=== PATIENT | male | born 1945 | race Caucasian/White ===

== ENCOUNTER → 2017-02-24 | Outpatient (CLI) | payer MEDICARE, BC ==
[~2017-02-24] MED LIST: ALEVE 220MG220 MG PO; ALOXI; AMOXICILLIN 50500 MG PO; ANTIVIRAL MED; ASPIRIN 32325 MG/TAB PO; ASPIRIN 81M81 MG/TA2 PO; ATARAX 25MG25 MG/TAB PO; BACTRIM 400 MG-1 TAB PO; BROVANA15 MCG/2 M IH; CARBOPLATIN IV; CARDIZEM CD 18180 MG PO; CENTRUM MEN'S PO; CENTRUM SILVER1 TA1 PO; CENTRUM SILVER1 TA2 PO; CHEMO DRUG; CIPRO 100MG TA100 MG PO; CIPRO 500MG TA500 MG PO; COMPAZINE 110 MG/TAB PO; COMPLETE SENIOR1 TA1 PO; COREG 3.123.125 MG/T PO; DALIRESP500 MCG PO; DECADRON 4MG TAB4 MG; DOXYCYCLINE 10100 MG PO; EFFIENT10 MG PO; EMEND40 MG; EPA FISH OIL1 SGL; FLOMAX0.4 MG PO; FLONASE NASAL S16 GM NS; FOLIC ACID; FOLIC ACID 11 MG/TA1 PO; GEMCITABINE IV; GRX VITAMIN E1000 IU TP; HCTZ 25MG TAB25 MG PO; K-DUR 2020 MEQ PO; LASIX 40MG TABL40 MG PO; LEXAPRO 10MG10 MG PO; LIPOTRIAD VISI1 EAC1 PO; LOTENSIN 1010 MG/TAB PO; LOTENSIN HCT 101 TAB PO; MAG-OX 400400 MG/TAB PO; MAGIC MOUTH PO; MINIPRIN81 MG PO; MUCINEX1200 MG PO; NATURAL E400 IU PO; NORCO 325 MG-51 TAB PO; OMEGA 31000 MG PO; OMEGA-3 FISH1000 MG PO; PERCOCET 325 MG1 TA2 PO; PREDNISONE10 MG PO; REQUIP 1MG T1 MG/TAB PO; REQUIP0.25 MG PO; RT SPIRIVA18 MCG IH; SPIRIVA HANDIH18 MCG IH; STIOLTO RESPIMAT4 GM IH; THEO-24 20200 MG/CAP PO; VASOTEC 2.2.5 MG/TAB PO; VASOTEC 5MG5 MG/TAB PO; VENTOLIN0.09 MG IH; VIT B-6100 MG PO; VITAMIN B-6100 MG PO; VITAMIN E1000 U/CAP PO; ZANTAC 150MG T150 MG PO; ZOVIRAX400 MG PO; ZYRTEC 10MG10 MG PO; ZYRTEC ALLERGY10 MG PO; ZYRTEC-D 5 MG-11 TER PO; ZYRTEC5 M1 PO; ZYRTEC5 MG PO; [UNRECOGNIZED DRUG - OTHER]; [UNRECOGNIZED DRUG - OTHER]; [UNRECOGNIZED DRUG - OTHER] PO
[2017-02-27 15:22] LABS: ALBUMIN FRACTION 3.8 g/dL (2.6-4.5); ALBUMIN PERCENTAGE 55.3 % (48.7-61.8); ALPHA 1 FRACTION 0.5 g/dL (0.3-0.5); ALPHA 2 FRACTION 0.9 g/dL (0.6-1.2); BETA 1 FRACTION 0.5 g/dL (0.4-0.6); BETA 1 PERCENTAGE 6.5 % (5.4-8.9); BETA 2 FRACTION 0.5 g/dL (0.2-0.5); GAMMA FRACTION 0.8 g/dL (0.4-1.7); GAMMA PERCENTAGE 11.2 % (8.1-23.0); SERUM PROTEIN TOTAL 6.9 g/dL (6.0-7.6)
== END ==
LOC: COL.LAB 11:25
PROVIDERS: Psychiatry & Neurology Neurology
DX: G62.9 Polyneuropathy, unspecified (principal)

== ENCOUNTER → 2017-04-03 | Outpatient (CLI) | payer MEDICARE, BC ==
[2017-04-03 15:36] LABS: HEMOGLOBIN 13.9 g/dl (13.5-18.0)
[2017-04-03 15:41] LABS: HEMATOCRIT 41.4 % (42.0-52.0)
== END ==
LOC: COL.LAB 14:52
PROVIDERS: Internal Medicine
DX: E83.119 Hemochromatosis, unspecified (principal)

== ENCOUNTER → 2017-04-14 | Outpatient (CLI) | payer MEDICARE, BC ==
[2017-04-14 13:43] LABS: PH 6 (5-8); SQUAMOUS EPITHELIAL None Seen /hpf; URINE APPEARANCE Hazy; URINE BACTERIA None Seen /hpf; URINE BILIRUBIN Negative (NEGATIVE); URINE BLOOD 1+ (NEGATIVE); URINE COLOR Yellow; URINE GLUCOSE Negative (NEGATIVE); URINE KETONE Negative (NEGATIVE); URINE UROBILINOGEN Negative (NEGATIVE); URINE WBC 20-50 /hpf
[2017-04-14 14:06] LABS: CALCIUM 9.4 mg/dL (8.4-10.2); CREATININE, serum 1.99 mg/dL (0.66-1.25); POTASSIUM 4.7 mmol/L (3.4-5.0)
[2017-04-14 23:57] LABS: ALBUMIN/CREATININE RATIO URINE 220.6 mg/g (0.0-29.0)
== END ==
LOC: COL.LAB 13:10
PROVIDERS: Internal Medicine Nephrology
DX: N18.2 Chronic kidney disease, stage 2 (mild) (principal); E11.9 Type 2 diabetes mellitus without complications

== ENCOUNTER 2017-04-27 11:55 | Inpatient (IN) | payer MEDICARE, BC ==
[~2017-04-27] VITALS: Ht 172.7 cm; Wt 66.4 kg
[2017-04-27] VITALS (300 sets, daily range): BP systolic 106–124; BP diastolic 56–71; PULSE 88–106; TEMP 97–98; O2SAT 55–100
[~2017-04-27 11:55] MED LIST changes: -ATARAX 25MG25 MG/TAB PO; -CENTRUM MEN'S PO; -DALIRESP500 MCG PO; -EPA FISH OIL1 SGL; -NATURAL E400 IU PO; -OMEGA-3 FISH1000 MG PO; -PREDNISONE10 MG PO; -REQUIP 1MG T1 MG/TAB PO; -VASOTEC 5MG5 MG/TAB PO; -VITAMIN B-6100 MG PO; -ZYRTEC5 MG PO
[2017-04-27] MEDS ORDERED: EFFIENT10 MG PO (12:47)
[2017-04-27] MEDS ORDERED: CARDIZEM CD 18180 MG PO (12:47)
[2017-04-27] MEDS ORDERED: VASOTEC 5MG5 MG/TAB PO (12:47)
[2017-04-27 12:48] LABS: BASO % 0.1 % (0.0-2.0); EOS % 0.1 % (0-4.0); GRAN # 15.6 (1.4-6.5); GRAN % 87.5 % (42.2-75.2); HEMATOCRIT 45.2 % (42.0-52.0); HEMOGLOBIN 15.2 g/dl (13.5-18.0); LYMPH # 1.3 (1.2-3.4); LYMPH % 7.2 % (20.0-51.0); MEAN CELL VOLUME 86 fl (80.0-100.0); MEAN CORPUSCULAR HEMOGLOBIN 29 pg (27.0-31.0); MEAN CORPUSCULAR HGB CONC 34 g/dl (33.0-37.0); MEAN PLATELET VOLUME 10.1 fl (7.4-10.4); MONO # 0.8 (0.1-0.6); MONO % 4.5 % (1.7-9.3); PLATELET COUNT 245 K/mm3 (130-400); RED BLOOD COUNT 5.23 M/mm3 (4.20-5.60); REDCELL DISTRIBUTION WIDTH-CV 13.8 % (11.5-14.5); WHITE BLOOD COUNT 17.8 K/mm3 (4.8-10.8)
[2017-04-27] MEDS ORDERED: LEXAPRO 10MG10 MG PO (12:53)
[2017-04-27] MEDS ORDERED: ASPIRIN 32325 MG/TAB PO (12:53)
[2017-04-27] MEDS ORDERED: ZANTAC 150MG T150 MG PO (12:53)
[2017-04-27] MEDS ORDERED: STIOLTO RESPIMAT4 GM IH (12:54)
[2017-04-27] MEDS ORDERED: REQUIP 1MG T1 MG/TAB PO (12:54)
[2017-04-27] MEDS ORDERED: ATARAX 25MG25 MG/TAB PO (12:54)
[2017-04-27] MEDS ORDERED: THEO-24 20200 MG/CAP PO (12:54)
[2017-04-27] MEDS ORDERED: CENTRUM MEN'S PO (12:55)
[2017-04-27] MEDS ORDERED: ZYRTEC5 MG PO (12:55)
[2017-04-27] MEDS ORDERED: FOLIC ACID 11 MG/TA1 PO (12:55)
[2017-04-27] MEDS ORDERED: EPA FISH OIL1 SGL (12:56)
[2017-04-27 12:57] LABS: INR 0.9 (0.8-3.0); PROTHROMBIN TIME 10.1 SECONDS (9.7-12.8)
[2017-04-27] MEDS ORDERED: NATURAL E400 IU PO (12:57)
[2017-04-27] MEDS ORDERED: VITAMIN B-6100 MG PO (12:57)
[2017-04-27 13:00] LABS: ALANINE AMINOTRANSFERASE 29 U/L (21-72); ALKALINE PHOSPHATASE 54 U/L (50-136); ANION GAP 13 mmol/L (7-16); BILIRUBIN,TOTAL 1.2 mg/dL (0.0-1.0); BLOOD UREA NITROGEN 76 mg/dL (9-20); C-REACTIVE PROTEIN < 0.5 mg/dL (0.0-0.9); CARBON DIOXIDE 15 mmol/L (22-30); CHLORIDE 103 mmol/L (98-107); CREATININE, serum 2.17 mg/dL (0.66-1.25); GLUCOSE 216 mg/dL (74-106); PARTIAL THROMBOPLASTIN TIME 21.9 SECONDS (26.0-37.0); POTASSIUM 5.1 mmol/L (3.4-5.0); SODIUM 131 mmol/L (137-145); TOTAL PROTEIN 6.7 gm/dL (6.4-8.2)
[2017-04-27 13:09] LABS: B-TYPE NATRIURETIC PEPTIDE 268 pg/mL (0-125)
[2017-04-27 13:11] LABS: TROPONIN-I 0.037 ng/mL (0.000-0.034)
[2017-04-27 13:47] LABS: PH 6 (5-8); SQUAMOUS EPITHELIAL 0-2 /hpf; URINE APPEARANCE Clear; URINE BACTERIA None Seen /hpf; URINE BILIRUBIN Negative (NEGATIVE); URINE BLOOD 3+ (NEGATIVE); URINE COLOR Yellow; URINE GLUCOSE Negative (NEGATIVE); URINE KETONE Negative (NEGATIVE); URINE RBC >50 /hpf; URINE UROBILINOGEN Negative (NEGATIVE)
[2017-04-27 13:50] LABS: URINE WBC 20-50 /hpf
[2017-04-27] MEDS ORDERED: DALIRESP500 MCG PO (14:03)
[2017-04-27] MEDS ORDERED: ASPIRIN 81M81 MG/TA2 PO (14:03)
[2017-04-27] MEDS ORDERED: PREDNISONE10 MG PO (14:04)
[2017-04-27 18:14] LABS: MAGNESIUM 2.3 mg/dL (1.6-2.3)
[2017-04-27] MEDS ORDERED: OMEGA-3 FISH1000 MG PO (18:32)
[2017-04-28] VITALS (28 sets, daily range): BP systolic 110–130; BP diastolic 71–88; PULSE 83–102; TEMP 97.4–98; O2SAT 96–100
[2017-04-28 09:46] LABS: BASO % 0.1 % (0.0-2.0); EOS # 0.1 (0.0-0.7); EOS % 1.3 % (0-4.0); GRAN # 8.9 (1.4-6.5); GRAN % 82.7 % (42.2-75.2); HEMATOCRIT 39.7 % (42.0-52.0); LYMPH # 1.2 (1.2-3.4); LYMPH % 11.3 % (20.0-51.0); MEAN CELL VOLUME 87 fl (80.0-100.0); MEAN CORPUSCULAR HEMOGLOBIN 29 pg (27.0-31.0); MEAN CORPUSCULAR HGB CONC 33 g/dl (33.0-37.0); MEAN PLATELET VOLUME 10.2 fl (7.4-10.4); MONO # 0.4 (0.1-0.6); MONO % 3.9 % (1.7-9.3); PLATELET COUNT 179 K/mm3 (130-400); RED BLOOD COUNT 4.56 M/mm3 (4.20-5.60); REDCELL DISTRIBUTION WIDTH-CV 13.7 % (11.5-14.5); WHITE BLOOD COUNT 10.7 K/mm3 (4.8-10.8)
[2017-04-28 09:50] LABS: HEMOGLOBIN 13.2 g/dl (13.5-18.0)
[2017-04-28 09:58] LABS: CALCIUM 8.6 mg/dL (8.4-10.2); CREATININE, serum 1.49 mg/dL (0.66-1.25); POTASSIUM 4.5 mmol/L (3.4-5.0)
== END 2017-04-28 13:15 | disposition home or self-care (01) | DRG 682 ==
LOC: COL.ER 11:55 → ICU 14:28
PROVIDERS: Emergency Medicine; Family Medicine; Physician Assistant
DX: N17.9 Acute kidney failure, unspecified (principal); I21.4 Non-ST elevation (NSTEMI) myocardial infarction; N39.0 Urinary tract infection, site not specified; J44.9 Chronic obstructive pulmonary disease, unspecified; I12.9 Hypertensive chronic kidney disease with stage 1 through stage 4 chronic kidney disease, or unspecified chronic kidney disease; E11.22 Type 2 diabetes mellitus with diabetic chronic kidney disease; N18.9 Chronic kidney disease, unspecified; G20 Parkinson's disease; I25.10 Atherosclerotic heart disease of native coronary artery without angina pectoris; Z95.5 Presence of coronary angioplasty implant and graft; Z85.51 Personal history of malignant neoplasm of bladder; Z87.891 Personal history of nicotine dependence
CPT/HCPCS: OP; 99223-AI; 99239; J0696; J1644; J7030; J7512

== ENCOUNTER → 2017-05-23 | Outpatient (REF) ==
[~2017-05-23] MED LIST changes: +ATARAX 25MG25 MG/TAB PO; +CENTRUM MEN'S PO; +DALIRESP500 MCG PO; +EPA FISH OIL1 SGL; +NATURAL E400 IU PO; +OMEGA-3 FISH1000 MG PO; +PREDNISONE10 MG PO; +REQUIP 1MG T1 MG/TAB PO; +VASOTEC 5MG5 MG/TAB PO; +VITAMIN B-6100 MG PO; +ZYRTEC5 MG PO
== END ==
LOC: ZLAB.WCH 18:36
DX: Z01.89 Encounter for other specified special examinations (principal)

== ENCOUNTER → 2017-12-05 | Outpatient (REF) | LOC: ZLAB.WCH 18:30 | DX: Z01.89 Encounter for other specified special examinations (principal) ==

== ENCOUNTER → 2018-01-03 | Outpatient (CLI) | payer MEDICARE, BC ==
[2018-01-03 13:31] LABS: HEMOGLOBIN 13.7 g/dl (13.5-18.0)
[2018-01-03 13:33] LABS: HEMATOCRIT 39.9 % (42.0-52.0)
== END ==
LOC: COL.LAB 11:47
PROVIDERS: Internal Medicine
DX: E83.110 Hereditary hemochromatosis (principal)

== ENCOUNTER → 2018-04-03 | Outpatient (CLI) | payer MEDICARE, BC ==
[2018-04-03 11:41] LABS: COLLECTION METHOD CLEAN CATCH
[2018-04-03 11:57] LABS: MUCOUS Present /lpf; PH 6 (5-8); SQUAMOUS EPITHELIAL 0-2 /hpf; URINE APPEARANCE Hazy; URINE BACTERIA None Seen /hpf; URINE BILIRUBIN Negative (NEGATIVE); URINE BLOOD Negative (NEGATIVE); URINE COLOR Yellow; URINE GLUCOSE Negative (NEGATIVE); URINE KETONE Negative (NEGATIVE); URINE LEUKOCYTE ESTERASE Negative (NEGATIVE); URINE NITRATE Negative (NEGATIVE); URINE PROTEIN(semi-quant) Negative (NEGATIVE); URINE UROBILINOGEN Negative (NEGATIVE)
[2018-04-03 12:03] LABS: CALCIUM 9.5 mg/dL (8.4-10.2); CREATININE, serum 1.44 mg/dL (0.66-1.25); POTASSIUM 4.7 mmol/L (3.4-5.0)
[2018-04-03 23:12] LABS: URINE MICROALBUMIN 2.8 mg/dL (0.0-1.7)
== END ==
LOC: COL.LAB 11:07
PROVIDERS: Internal Medicine Nephrology
DX: R31.29 Other microscopic hematuria (principal); R80.9 Proteinuria, unspecified; N18.2 Chronic kidney disease, stage 2 (mild)

== ENCOUNTER → 2018-05-09 | Outpatient (CLI) | payer MEDICARE, BC ==
[2018-05-09 16:00] LABS: HEMOGLOBIN 13.9 g/dl (13.5-18.0)
[2018-05-09 16:03] LABS: HEMATOCRIT 40.4 % (42.0-52.0)
== END ==
LOC: COL.LAB 14:49
PROVIDERS: Internal Medicine
DX: E83.110 Hereditary hemochromatosis (principal)

== ENCOUNTER 2018-08-10 09:21 | Emergency (ER) | payer MEDICARE, BC ==
[~2018-08-10] VITALS: Ht 172.7 cm; Wt 75.0 kg
[2018-08-10 09:25] VITALS: TEMP 98.5
[2018-08-10] MEDS ORDERED: ANORO IH (09:40)
[2018-08-10] MEDS ORDERED: PERCOCET 325 MG1 TA2 PO (10:14)
[2018-08-10 11:28] VITALS: BP 138/88; PULSE 92
== END 2018-08-10 11:30 | disposition home or self-care (01) ==
LOC: COL.ER 09:21
DX: M54.2 Cervicalgia (principal); J45.909 Unspecified asthma, uncomplicated; I25.10 Atherosclerotic heart disease of native coronary artery without angina pectoris; M10.9 Gout, unspecified; E78.5 Hyperlipidemia, unspecified; G20 Parkinson's disease; I10 Essential (primary) hypertension; Z98.890 Other specified postprocedural states; Z88.2 Allergy status to sulfonamides; Z87.891 Personal history of nicotine dependence; Z85.89 Personal history of malignant neoplasm of other organs and systems; Z85.51 Personal history of malignant neoplasm of bladder; Z79.82 Long term (current) use of aspirin
CPT/HCPCS: J2270; J2550

== ENCOUNTER 2018-08-20 06:47 | Day surgery (SDC) | payer MEDICARE, BC ==
[~2018-08-20] VITALS: Ht 172.8 cm; Wt 74.1 kg
[2018-08-20] VITALS (363 sets, daily range): BP systolic 115–147; BP diastolic 65–93; PULSE 69–109; TEMP 97.5–98.1; O2SAT 81–100
[~2018-08-20 06:47] MED LIST changes: +ANORO IH
[2018-08-20 07:57] LABS: HEMATOCRIT 40.4 % (42.0-52.0); MEAN CELL VOLUME 86 fl (80.0-100.0); MEAN CORPUSCULAR HEMOGLOBIN 30 pg (27.0-31.0); MEAN CORPUSCULAR HGB CONC 35 g/dl (33.0-37.0); MEAN PLATELET VOLUME 9.7 fl (7.4-10.4); PLATELET COUNT 267 K/mm3 (130-400); RED BLOOD COUNT 4.71 M/mm3 (4.20-5.60); REDCELL DISTRIBUTION WIDTH-CV 12.8 % (11.5-14.5)
[2018-08-20] MEDS ORDERED: MUCINEX1200 MG PO (08:01)
[2018-08-20 08:07] LABS: PROTHROMBIN TIME 11.7 SECONDS (9.7-12.8)
[2018-08-20 08:09] LABS: CALCIUM 9.6 mg/dL (8.4-10.2); CREATININE, serum 1.62 mg/dL (0.66-1.25); POTASSIUM 4.8 mmol/L (3.4-5.0)
[2018-08-21] VITALS (295 sets, daily range): BP systolic 116–141; BP diastolic 70–90; PULSE 76–90; TEMP 97.6–98.1; O2SAT 90–98
[2018-08-21 05:37] LABS: BASO # 0.1 (0.0-0.2); BASO % 0.5 % (0.0-2.0); EOS # 0.7 (0.0-0.7); EOS % 6.8 % (0-4.0); GRAN # 7.4 (1.4-6.5); HEMOGLOBIN 12.3 g/dl (13.5-18.0); LYMPH # 1.2 (1.2-3.4); MEAN CELL VOLUME 86 fl (80.0-100.0); MEAN CORPUSCULAR HEMOGLOBIN 30 pg (27.0-31.0); MEAN CORPUSCULAR HGB CONC 34 g/dl (33.0-37.0); MEAN PLATELET VOLUME 9.6 fl (7.4-10.4); MONO # 0.8 (0.1-0.6); MONO % 7.4 % (1.7-9.3); PLATELET COUNT 227 K/mm3 (130-400); RED BLOOD COUNT 4.16 M/mm3 (4.20-5.60); REDCELL DISTRIBUTION WIDTH-CV 12.9 % (11.5-14.5)
[2018-08-21 05:43] LABS: HEMATOCRIT 35.8 % (42.0-52.0)
[2018-08-21 05:56] LABS: CALCIUM 8.9 mg/dL (8.4-10.2); CREATININE, serum 1.61 mg/dL (0.66-1.25); POTASSIUM 4.6 mmol/L (3.4-5.0)
== END 2018-08-21 10:45 | disposition home or self-care (01) ==
LOC: COL.CAR 06:47 → ICU 10:33 → COL.CAR 08-21 10:45
PROVIDERS: Internal Medicine Cardiovascular Disease; Nurse Practitioner
DX: R06.02 Shortness of breath (principal); I25.10 Atherosclerotic heart disease of native coronary artery without angina pectoris; I25.2 Old myocardial infarction; I25.5 Ischemic cardiomyopathy; I12.9 Hypertensive chronic kidney disease with stage 1 through stage 4 chronic kidney disease, or unspecified chronic kidney disease; N18.9 Chronic kidney disease, unspecified; J44.9 Chronic obstructive pulmonary disease, unspecified; E83.119 Hemochromatosis, unspecified; G20 Parkinson's disease; Z79.82 Long term (current) use of aspirin; Z88.8 Allergy status to other drugs, medicaments and biological substances; Z85.51 Personal history of malignant neoplasm of bladder; Z92.21 Personal history of antineoplastic chemotherapy; Z87.891 Personal history of nicotine dependence; Z82.49 Family history of ischemic heart disease and other diseases of the circulatory system
CPT/HCPCS: OP; C1725; C1760; C1769; C1874; C1887; C1894; C9600; J0583; J1644; J2250; J3010; Q9967

== ENCOUNTER 2018-10-04 23:43 | Emergency (ER) | payer MEDICARE, BC ==
[~2018-10-04] VITALS: Ht 172.7 cm; Wt 72.7 kg
[2018-10-04 23:46] VITALS: BP 131/72; TEMP 98.1
[2018-10-05 00:24] LABS: BASO # 0.1 (0.0-0.2); BASO % 0.7 % (0.0-2.0); EOS % 8.5 % (0-4.0); GRAN % 73.5 % (42.2-75.2); HEMATOCRIT 38.4 % (42.0-52.0); HEMOGLOBIN 13.2 g/dl (13.5-18.0); LYMPH # 1.3 (1.2-3.4); LYMPH % 10.2 % (20.0-51.0); MEAN CELL VOLUME 89 fl (80.0-100.0); MEAN CORPUSCULAR HEMOGLOBIN 31 pg (27.0-31.0); MEAN CORPUSCULAR HGB CONC 34 g/dl (33.0-37.0); MEAN PLATELET VOLUME 10.3 fl (7.4-10.4); MONO # 0.8 (0.1-0.6); MONO % 6.5 % (1.7-9.3); PLATELET COUNT 224 K/mm3 (130-400); RED BLOOD COUNT 4.33 M/mm3 (4.20-5.60); REDCELL DISTRIBUTION WIDTH-CV 13.5 % (11.5-14.5)
[2018-10-05 00:33] LABS: C-REACTIVE PROTEIN 3.2 mg/dL (0.0-0.9); CALCIUM 9.1 mg/dL (8.4-10.2); CREATININE, serum 1.51 mg/dL (0.66-1.25); POTASSIUM 4.2 mmol/L (3.4-5.0); URIC ACID 6.8 mg/dL (3.5-8.5)
[2018-10-05] MEDS ORDERED: NORCO 325 MG-51 TAB PO (01:51)
[2018-10-05] MEDS ORDERED: COLCRYS0.6 MG PO (01:51)
[2018-10-05 02:20] VITALS: PULSE 84
== END 2018-10-05 02:31 | disposition home or self-care (01) ==
LOC: COL.ER 23:43
PROVIDERS: Emergency Medicine
DX: M25.561 Pain in right knee (principal); M25.461 Effusion, right knee; I25.10 Atherosclerotic heart disease of native coronary artery without angina pectoris; E78.5 Hyperlipidemia, unspecified; E11.22 Type 2 diabetes mellitus with diabetic chronic kidney disease; I12.9 Hypertensive chronic kidney disease with stage 1 through stage 4 chronic kidney disease, or unspecified chronic kidney disease; N18.9 Chronic kidney disease, unspecified; J44.9 Chronic obstructive pulmonary disease, unspecified; E83.119 Hemochromatosis, unspecified; G20 Parkinson's disease; Z79.82 Long term (current) use of aspirin; Z79.899 Other long term (current) drug therapy; Z95.5 Presence of coronary angioplasty implant and graft; Z85.51 Personal history of malignant neoplasm of bladder
CPT/HCPCS: J2930; J3010

== ENCOUNTER 2018-11-14 14:37 | Outpatient (RCR) | payer MEDICARE, BC ==
[~2018-11-14 14:37] MED LIST changes: +COLCRYS0.6 MG PO
[2018-11-16] MEDS ORDERED: FLEXERIL 1010 MG/TAB PO (11:16)
[2018-11-16] MEDS ORDERED: NORCO 325 MG-51 TAB PO (11:16)
[2018-11-17] MEDS ORDERED: PREDNISONE20 MG PO (22:54)
== END 2018-12-23 | disposition home or self-care (01) ==
LOC: COL.CR
DX: Z48.812 Encounter for surgical aftercare following surgery on the circulatory system (principal); Z95.5 Presence of coronary angioplasty implant and graft

== ENCOUNTER 2018-11-16 09:14 | Emergency (ER) | payer MEDICARE, BC ==
[~2018-11-16] VITALS: Ht 172.7 cm; Wt 74.1 kg
[2018-11-16 09:17] VITALS: TEMP 97.8
[2018-11-16 09:45] LABS: BASO # 0.1 (0.0-0.2); BASO % 0.8 % (0.0-2.0); EOS # 1.1 (0.0-0.7); EOS % 8.5 % (0-4.0); GRAN # 9.7 (1.4-6.5); GRAN % 74.5 % (42.2-75.2); HEMATOCRIT 39.9 % (42.0-52.0); HEMOGLOBIN 13.6 g/dl (13.5-18.0); LYMPH # 1.3 (1.2-3.4); LYMPH % 10.3 % (20.0-51.0); MEAN CELL VOLUME 91 fl (80.0-100.0); MEAN CORPUSCULAR HEMOGLOBIN 31 pg (27.0-31.0); MEAN CORPUSCULAR HGB CONC 34 g/dl (33.0-37.0); MEAN PLATELET VOLUME 10.1 fl (7.4-10.4); MONO # 0.7 (0.1-0.6); MONO % 5.6 % (1.7-9.3); PLATELET COUNT 248 K/mm3 (130-400); RED BLOOD COUNT 4.39 M/mm3 (4.20-5.60); REDCELL DISTRIBUTION WIDTH-CV 13.2 % (11.5-14.5)
[2018-11-16 10:06] LABS: ALANINE AMINOTRANSFERASE 22 U/L (21-72); ALBUMIN 4.1 gm/dL (3.5-5.0); ALKALINE PHOSPHATASE 80 U/L (50-136); ANION GAP 12 mmol/L (7-16); AST,SGOT 24 U/L (15-37); BILIRUBIN,TOTAL 0.5 mg/dL (0.0-1.0); BLOOD UREA NITROGEN 32 mg/dL (9-20); CALCIUM 9.6 mg/dL (8.4-10.2); CARBON DIOXIDE 21 mmol/L (22-30); CHLORIDE 106 mmol/L (98-107); CREATININE, serum 1.48 mg/dL (0.66-1.25); GLUCOSE 252 mg/dL (74-106); LIPASE 135 U/L (23-300); POTASSIUM 4.7 mmol/L (3.4-5.0); SODIUM 139 mmol/L (137-145); TOTAL PROTEIN 7.2 gm/dL (6.4-8.2)
[2018-11-16 10:20] LABS: TROPONIN-I < 0.012 ng/mL (0.000-0.034)
[2018-11-16] MEDS ORDERED: FLEXERIL 1010 MG/TAB PO (11:16)
[2018-11-16] MEDS ORDERED: NORCO 325 MG-51 TAB PO (11:16)
[2018-11-16 12:12] VITALS: BP 142/79; PULSE 85
[2018-11-17] MEDS ORDERED: PREDNISONE20 MG PO (22:54)
== END 2018-11-16 12:13 | disposition home or self-care (01) ==
LOC: COL.ER 09:14
PROVIDERS: Emergency Medicine
DX: M54.2 Cervicalgia (principal); I25.10 Atherosclerotic heart disease of native coronary artery without angina pectoris; E78.5 Hyperlipidemia, unspecified; M10.9 Gout, unspecified; J44.9 Chronic obstructive pulmonary disease, unspecified; G20 Parkinson's disease; E11.9 Type 2 diabetes mellitus without complications; Z95.5 Presence of coronary angioplasty implant and graft; Z79.82 Long term (current) use of aspirin
CPT/HCPCS: J3010; J7040

== ENCOUNTER 2018-11-17 20:58 | Emergency (ER) | payer MEDICARE, BC ==
[~2018-11-17] VITALS: Ht 172.7 cm; Wt 73.6 kg
[~2018-11-17 20:58] MED LIST changes: +FLEXERIL 1010 MG/TAB PO
[2018-11-17 21:03] VITALS: TEMP 99.8
[2018-11-17 21:39] LABS: BASO # 0.1 (0.0-0.2); BASO % 0.7 % (0.0-2.0); EOS # 1.1 (0.0-0.7); EOS % 9.7 % (0-4.0); GRAN # 8.6 (1.4-6.5); GRAN % 74.7 % (42.2-75.2); HEMATOCRIT 39.7 % (42.0-52.0); HEMOGLOBIN 13.5 g/dl (13.5-18.0); LYMPH # 0.9 (1.2-3.4); LYMPH % 7.7 % (20.0-51.0); MEAN CELL VOLUME 90 fl (80.0-100.0); MEAN CORPUSCULAR HEMOGLOBIN 31 pg (27.0-31.0); MEAN CORPUSCULAR HGB CONC 34 g/dl (33.0-37.0); MEAN PLATELET VOLUME 9.9 fl (7.4-10.4); MONO # 0.8 (0.1-0.6); PLATELET COUNT 225 K/mm3 (130-400); RED BLOOD COUNT 4.39 M/mm3 (4.20-5.60); REDCELL DISTRIBUTION WIDTH-CV 13.2 % (11.5-14.5)
[2018-11-17 21:52] LABS: ALBUMIN 4.2 gm/dL (3.5-5.0); BILIRUBIN,TOTAL 0.6 mg/dL (0.0-1.0); CALCIUM 9.8 mg/dL (8.4-10.2); CREATININE, serum 1.52 mg/dL (0.66-1.25); POTASSIUM 4.7 mmol/L (3.4-5.0); TOTAL PROTEIN 7.6 gm/dL (6.4-8.2)
[2018-11-17] MEDS ORDERED: PREDNISONE20 MG PO (22:54)
[2018-11-17 23:10] VITALS: BP 132/78; PULSE 83
== END 2018-11-17 23:10 | disposition home or self-care (01) ==
LOC: COL.ER 20:58
PROVIDERS: Emergency Medicine
DX: S16.1XXA Strain of muscle, fascia and tendon at neck level, initial encounter (principal); M50.30 Other cervical disc degeneration, unspecified cervical region; E78.5 Hyperlipidemia, unspecified; J44.9 Chronic obstructive pulmonary disease, unspecified; G20 Parkinson's disease; E11.22 Type 2 diabetes mellitus with diabetic chronic kidney disease; N18.9 Chronic kidney disease, unspecified; I25.10 Atherosclerotic heart disease of native coronary artery without angina pectoris; I12.9 Hypertensive chronic kidney disease with stage 1 through stage 4 chronic kidney disease, or unspecified chronic kidney disease; K21.9 Gastro-esophageal reflux disease without esophagitis; Z95.5 Presence of coronary angioplasty implant and graft; Z79.82 Long term (current) use of aspirin; Z87.891 Personal history of nicotine dependence; X58.XXXA Exposure to other specified factors, initial encounter
CPT/HCPCS: J1885; J2930; J3010; J7040

== ENCOUNTER → 2018-12-10 | Outpatient (REF) ==
[~2018-12-10] MED LIST changes: +PREDNISONE20 MG PO
== END ==
LOC: ZLAB.WCH 16:00
DX: Z01.89 Encounter for other specified special examinations (principal)

== ENCOUNTER → 2019-03-29 | Outpatient (CLI) | payer MEDICARE, BC ==
[2019-03-29 11:13] LABS: CALCIUM 9.5 mg/dL (8.4-10.2); CREATININE, serum 1.65 (0.66-1.25); POTASSIUM 4.7 mmol/L (3.4-5.0)
[2019-03-29 22:38] LABS: URINE MICROALBUMIN 3.4 mg/dL (0.0-1.7)
== END ==
LOC: COL.LAB 10:05
PROVIDERS: Internal Medicine Nephrology
DX: I12.9 Hypertensive chronic kidney disease with stage 1 through stage 4 chronic kidney disease, or unspecified chronic kidney disease (principal); N18.2 Chronic kidney disease, stage 2 (mild); E11.22 Type 2 diabetes mellitus with diabetic chronic kidney disease

== ENCOUNTER → 2020-04-15 | Outpatient (CLI) | payer MEDICARE, BC ==
[2020-04-15 11:31] LABS: CALCIUM 9.7 mg/dL (8.4-10.2); CREATININE, serum 1.51 (0.66-1.25); POTASSIUM 4.7 mmol/L (3.4-5.0)
[2020-04-15 21:47] LABS: URINE MICROALBUMIN 5.3 mg/dL (0.0-1.7)
== END ==
LOC: COL.LAB 10:20
PROVIDERS: Internal Medicine Nephrology
DX: E11.22 Type 2 diabetes mellitus with diabetic chronic kidney disease (principal); I12.9 Hypertensive chronic kidney disease with stage 1 through stage 4 chronic kidney disease, or unspecified chronic kidney disease; N18.2 Chronic kidney disease, stage 2 (mild)

== ENCOUNTER 2021-04-06 20:18 | Emergency (ER) | payer MEDICARE, BC ==
[~2021-04-06] VITALS: Ht 172.7 cm; Wt 61.8 kg
[2021-04-06 20:20] VITALS: BP 150/78; TEMP 98
[2021-04-06 21:01] LABS: BASO # 0.1 (0.0-0.2); BASO % 0.7 % (0.0-2.0); EOS # 0.8 (0.0-0.7); EOS % 9.6 % (0-4.0); GRAN # 5.8 (1.4-6.5); GRAN % 69.5 % (42.2-75.2); HEMATOCRIT 37.1 % (42.0-52.0); LYMPH # 1.2 (1.2-3.4); LYMPH % 14.5 % (20.0-51.0); MEAN CELL VOLUME 93 fl (80.0-100.0); MEAN CORPUSCULAR HEMOGLOBIN 30 pg (27.0-31.0); MEAN CORPUSCULAR HGB CONC 32 g/dl (33.0-37.0); MEAN PLATELET VOLUME 11.7 fl (7.4-10.4); MONO # 0.5 (0.1-0.6); MONO % 5.5 % (1.7-9.3); PLATELET COUNT 180 K/mm3 (130-400); RED BLOOD COUNT 3.99 M/mm3 (4.20-5.60); REDCELL DISTRIBUTION WIDTH-CV 13.6 % (11.5-14.5)
[2021-04-06 21:08] LABS: INR 1.1 (0.8-3.0); PROTHROMBIN TIME 12.6 SECONDS (9.7-12.8)
[2021-04-06 21:09] LABS: ALANINE AMINOTRANSFERASE 37 U/L (4-49); ALBUMIN 3.3 gm/dL (3.5-5.0); ALKALINE PHOSPHATASE 49 U/L (50-136); ANION GAP 3 mmol/L (7-16); AST,SGOT 51 U/L (15-37); BILIRUBIN,TOTAL 0.4 mg/dL (0.0-1.0); BLOOD UREA NITROGEN 23 mg/dL (9-20); CALCIUM 8.2 mg/dL (8.4-10.2); CARBON DIOXIDE 23 mmol/L (22-30); CHLORIDE 113 mmol/L (98-107); CREATININE, serum 1.02 (0.66-1.25); GLUCOSE 185 mg/dL (74-106); POTASSIUM 3.2 mmol/L (3.4-5.0); SODIUM 139 mmol/L (137-145); TOTAL PROTEIN 5.8 gm/dL (6.4-8.2)
[2021-04-06 21:23] LABS: TROPONIN-I 0.055 ng/mL (0.000-0.035)
[2021-04-06 21:37] LABS: LIPASE 149 U/L (23-300)
[2021-04-06 21:38] LABS: C-REACTIVE PROTEIN < 0.5 mg/dL (0.0-0.9)
[2021-04-06] MEDS ORDERED: PREDNISONE20 MG PO (22:42)
[2021-04-06 22:54] VITALS: PULSE 91
== END 2021-04-06 22:54 | disposition home or self-care (01) ==
LOC: COL.ER 20:18
PROVIDERS: Emergency Medicine
DX: J44.1 Chronic obstructive pulmonary disease with (acute) exacerbation (principal); J96.11 Chronic respiratory failure with hypoxia; I25.10 Atherosclerotic heart disease of native coronary artery without angina pectoris; E11.9 Type 2 diabetes mellitus without complications; I12.9 Hypertensive chronic kidney disease with stage 1 through stage 4 chronic kidney disease, or unspecified chronic kidney disease; Z79.52 Long term (current) use of systemic steroids; Z79.82 Long term (current) use of aspirin

== ENCOUNTER → 2021-04-09 | Outpatient (REF) ==
[~2021-04-09] MED LIST changes: +CENTRUM SILVER1 TAB PO; +CEPHALEXIN500 M1 PO; +COREG 6.256.25 MG/TA PO; +FARXIGA5 PO; +FISH OIL1000 MG PO; +LIPITOR 80MG80 MG PO; +MUCINEX D 12001 TER PO; +PREVAGEN PO; +SODIUM BICARBO650 MG PO; +SYNTHROID 0.0.025 MG PO; +TRELEGY ELLIPT1 EACH IH; +VITAMIN B225 MG PO; +VITAMIND3 5000 PO; +[UNRECOGNIZED DRUG - OTHER] PO
== END ==
LOC: ZLAB.WCH 10:19
DX: Z01.89 Encounter for other specified special examinations (principal)

== ENCOUNTER → 2021-05-13 | Outpatient (REF) ==
[2021-05-13 21:27] LABS: ALBUMIN 3.9 gm/dL (3.5-5.0); BILIRUBIN,TOTAL 0.6 mg/dL (0.0-1.0); CALCIUM 9.6 mg/dL (8.4-10.2); CREATININE, serum 1.21 (0.66-1.25); POTASSIUM 4.7 mmol/L (3.4-5.0); TOTAL PROTEIN 6.7 gm/dL (6.4-8.2)
[2021-05-13 21:54] LABS: IRON,SERUM 69 ug/dL (35-150)
[2021-05-13 21:57] LABS: THYROID STIMULATING HORMONE 0.016 uIU/mL (0.465-4.680)
[2021-05-13 22:03] LABS: TOTAL IRON BINDING CAPACITY 254 ug/dL (261-462)
[2021-05-13 22:30] LABS: URIC ACID 4.2 mg/dL (3.5-8.5)
[2021-05-13 22:31] LABS: CHOLESTEROL RISK RATIO 2.7; MAGNESIUM 1.9 mg/dL (1.6-2.3)
== END ==
LOC: ZLAB.WCH 20:44
PROVIDERS: Internal Medicine
DX: Z01.89 Encounter for other specified special examinations (principal)

== ENCOUNTER 2021-09-09 12:18 | Day surgery (SDC) | payer MEDICARE, BC ==
[~2021-09-09] VITALS: Ht 172.8 cm; Wt 56.0 kg
[2021-09-09] VITALS (11 sets, daily range): BP systolic 106–157; BP diastolic 67–86; PULSE 53–71; TEMP 97.5–98
[~2021-09-09 12:18] MED LIST changes: -CENTRUM SILVER1 TAB PO; -CEPHALEXIN500 M1 PO; -COREG 6.256.25 MG/TA PO; -FARXIGA5 PO; -FISH OIL1000 MG PO; -LIPITOR 80MG80 MG PO; -MUCINEX D 12001 TER PO; -PREVAGEN PO; -SODIUM BICARBO650 MG PO; -SYNTHROID 0.0.025 MG PO; -TRELEGY ELLIPT1 EACH IH; -VITAMIN B225 MG PO; -VITAMIND3 5000 PO; -[UNRECOGNIZED DRUG - OTHER] PO
[2021-09-09 12:50] LABS: HEMATOCRIT 43.9 % (42.0-52.0); HEMOGLOBIN 14.7 g/dl (13.5-18.0); MEAN CELL VOLUME 94 fl (80.0-100.0); MEAN CORPUSCULAR HEMOGLOBIN 31 pg (27.0-31.0); MEAN CORPUSCULAR HGB CONC 34 g/dl (33.0-37.0); MEAN PLATELET VOLUME 9.9 fl (7.4-10.4); PLATELET COUNT 215 K/mm3 (130-400); RED BLOOD COUNT 4.68 M/mm3 (4.20-5.60); REDCELL DISTRIBUTION WIDTH-CV 13.4 % (11.5-14.5)
[2021-09-09 12:57] LABS: INR 1.1 (0.8-3.0)
[2021-09-09 13:07] LABS: CALCIUM 9.6 mg/dL (8.4-10.2); CREATININE, serum 1.3 mg/dL (0.72-1.25); POTASSIUM 4.2 mmol/L (3.5-4.5)
[2021-09-09] MEDS ORDERED: SYNTHROID 0.0.025 MG PO (13:38)
[2021-09-09] MEDS ORDERED: COREG 6.256.25 MG/TA PO (13:38)
[2021-09-09] MEDS ORDERED: LIPITOR 80MG80 MG PO (13:39)
[2021-09-09] MEDS ORDERED: SODIUM BICARBO650 MG PO (13:50)
[2021-09-09] MEDS ORDERED: TRELEGY ELLIPT1 EACH IH (13:52)
[2021-09-09] MEDS ORDERED: MUCINEX D 12001 TER PO (13:52)
[2021-09-09] MEDS ORDERED: ZYRTEC 10MG10 MG PO ×2 (13:52→16:20)
[2021-09-09] MEDS ORDERED: [UNRECOGNIZED DRUG - OTHER] PO (13:54)
[2021-09-09] MEDS ORDERED: FOLIC ACID 11 MG/TA1 PO (13:55)
[2021-09-09] MEDS ORDERED: VITAMIND3 5000 PO (13:55)
[2021-09-09] MEDS ORDERED: CENTRUM SILVER1 TAB PO (13:56)
[2021-09-09] MEDS ORDERED: FISH OIL1000 MG PO (13:56)
[2021-09-09] MEDS ORDERED: VITAMIN B-6100 MG PO (13:57)
[2021-09-09] MEDS ORDERED: VITAMIN E1000 U/CAP PO (13:57)
[2021-09-09] MEDS ORDERED: VITAMIN B225 MG PO (14:00)
[2021-09-09] MEDS ORDERED: PREVAGEN PO (14:04)
[2021-09-09] MEDS ORDERED: FARXIGA5 PO (14:05)
--- NOTE | 2021-09-09 14:22 | NUR ---
SEE MERGE DOCUMENTATION FOR MEDICATION ADMINISTRATION DOCUMENTATION AND INTRA/POST PROCEDURE SEDATION ASSESSMENTS.
--- NOTE | 2021-09-09 18:50 | NUR ---
Pt recovered from ICD placement without issues. Site to L chest remains soft free from hematoma, LUE in sling. Denies pain. POC discussed with patient. No needs at this time. Call light within reach.
[2021-09-10 05:04] VITALS: BP 133/86; PULSE 61; TEMP 98.2
[2021-09-10 07:28] VITALS: BP 114/67; PULSE 79; TEMP 97.8
--- NOTE | 2021-09-10 09:42 | NUR ---
Pt assessment complete. Pt laying in bed upon entry, he is A/O x4. His breathing is even and unlabored on RA. Pt denies SOB. L chest incision sore, and tender to palpation. Pressure dressing removed from site, LUE in sling. Ice reapplied. Discussed with patient about continuing to move extremity so shoulder does not become "frozen". Pt verbalizes understanding. Also educated on ambulating out of bed. No further needs at this time. Call light within reach.
[2021-09-10 11:52] VITALS: BP 115/70; BP 97/77; PULSE 53; TEMP 98.2
[2021-09-10] MEDS ORDERED: CEPHALEXIN500 M1 PO (13:05)
--- NOTE | 2021-09-10 13:23 | NUR ---
Discharge paperwork and instructions reviewed with patient. All questions answered at this time. IV to LAC dc'd catheter tip intact.
== END 2021-09-10 13:30 | disposition home or self-care (01) ==
LOC: COL.CAR 12:18 → MEDICAL 12:18 → COL.CAR 09-10 13:30
PROVIDERS: Internal Medicine Cardiovascular Disease
DX: I25.5 Ischemic cardiomyopathy (principal); I25.10 Atherosclerotic heart disease of native coronary artery without angina pectoris; I10 Essential (primary) hypertension; I25.2 Old myocardial infarction; I47.1 Supraventricular tachycardia; I50.23 Acute on chronic systolic (congestive) heart failure; N18.9 Chronic kidney disease, unspecified; K21.9 Gastro-esophageal reflux disease without esophagitis; E83.119 Hemochromatosis, unspecified; E78.5 Hyperlipidemia, unspecified; Z79.82 Long term (current) use of aspirin; Z85.51 Personal history of malignant neoplasm of bladder; Z79.899 Other long term (current) drug therapy; Z79.890 Hormone replacement therapy; Z79.84 Long term (current) use of oral hypoglycemic drugs; Z87.891 Personal history of nicotine dependence
CPT/HCPCS: OP; C1721; C1777; C1894; C1898; J0690; J2250; J3010

== ENCOUNTER 2021-10-06 11:35 | Emergency (ER) | payer MEDICARE, BC ==
[~2021-10-06] VITALS: Ht 172.7 cm; Wt 57.3 kg
[~2021-10-06 11:35] MED LIST changes: +CENTRUM SILVER1 TAB PO; +CEPHALEXIN500 M1 PO; +COREG 6.256.25 MG/TA PO; +FARXIGA5 PO; +FISH OIL1000 MG PO; +LIPITOR 80MG80 MG PO; +MUCINEX D 12001 TER PO; +PREVAGEN PO; +SODIUM BICARBO650 MG PO; +SYNTHROID 0.0.025 MG PO; +TRELEGY ELLIPT1 EACH IH; +VITAMIN B225 MG PO; +VITAMIND3 5000 PO; +[UNRECOGNIZED DRUG - OTHER] PO
[2021-10-06 11:51] VITALS: TEMP 98.6
[2021-10-06 12:51] LABS: BASO # 0.1 K/mm3 (0.0-0.2); BASO % 0.7 % (0.0-2.0); EOS # 0.3 K/mm3 (0.0-0.7); EOS % 4.7 % (0-4.0); GRAN # 5.9 K/mm3 (1.4-6.5); GRAN % 80.7 % (42.2-75.2); HEMATOCRIT 44.8 % (42.0-52.0); HEMOGLOBIN 15.2 g/dl (13.5-18.0); LYMPH # 0.5 K/mm3 (1.2-3.4); LYMPH % 6.2 % (20.0-51.0); MEAN CELL VOLUME 97 fl (80.0-100.0); MEAN CORPUSCULAR HEMOGLOBIN 33 pg (27.0-31.0); MEAN CORPUSCULAR HGB CONC 34 g/dl (33.0-37.0); MEAN PLATELET VOLUME 10.7 fl (7.4-10.4); MONO # 0.5 K/mm3 (0.1-0.6); MONO % 7.4 % (1.7-9.3); PLATELET COUNT 148 K/mm3 (130-400); RED BLOOD COUNT 4.63 M/mm3 (4.20-5.60)
[2021-10-06 13:02] LABS: BILIRUBIN,TOTAL 1.3 mg/dL (0.2-1.2); CALCIUM 9.6 mg/dL (8.4-10.2); CREATININE, serum 1.52 mg/dL (0.72-1.25); POTASSIUM 4.7 mmol/L (3.5-4.5); TOTAL PROTEIN 7.1 gm/dL (6.2-8.1)
[2021-10-06] MEDS ORDERED: LEVAQUIN 5500 MG/TA1 PO (13:44)
[2021-10-06] MEDS ORDERED: PREDNISONE20 MG PO (13:44)
[2021-10-06 13:54] VITALS: BP 117/94; PULSE 87
== END 2021-10-06 14:16 | disposition home or self-care (01) ==
LOC: COL.ER 11:35
PROVIDERS: Personal Emergency Response Attendant
DX: J44.1 Chronic obstructive pulmonary disease with (acute) exacerbation (principal); J96.11 Chronic respiratory failure with hypoxia; I50.9 Heart failure, unspecified; I25.5 Ischemic cardiomyopathy; G20 Parkinson's disease; E78.5 Hyperlipidemia, unspecified; F17.210 Nicotine dependence, cigarettes, uncomplicated; Z99.81 Dependence on supplemental oxygen; Z95.5 Presence of coronary angioplasty implant and graft; Z95.810 Presence of automatic (implantable) cardiac defibrillator; Z88.2 Allergy status to sulfonamides; Z79.82 Long term (current) use of aspirin; Z79.899 Other long term (current) drug therapy

== ENCOUNTER 2021-11-30 11:38 | Inpatient (IN) | payer MEDICARE, BC ==
[~2021-11-30] VITALS: Ht 165.1 cm; Wt 52.5 kg
[~2021-11-30 11:38] MED LIST changes: +LEVAQUIN 5500 MG/TA1 PO
[2021-11-30 12:30] VITALS: BP 118/50; PULSE 66; TEMP 97.7
--- NOTE | 2021-11-30 12:56 | NUR ---
PT ARRIVED TO ROOM 345 VIA [facility] FROM [facility]. PT ALERT AND ORIENTED TO SELF. BELIEVES IT IS FALL AND HE IS IN [place]. HE IS ABLE TO TELL ME HE HAS A PACEMAKER AND CARDIAC STENTS. CONFIRMS HIS 'S NAME IS DINO. HOSPITALIST NOTIFIED OF PT'S ARRIVAL. PT DENIES NEEDS AT THIS TIME. ORIENTED PT TO ROOM AND CALL LIGHT. BED ALARM ON AND PT IS CLOSE TO NURSES STATION WITH DOOR OPEN.
[2021-11-30 14:00] VITALS: BP 112/67; PULSE 55; TEMP 97.7
[2021-11-30 14:26] LABS: HEMATOCRIT 38.5 % (42.0-52.0); HEMOGLOBIN 13.5 g/dl (13.5-18.0); MEAN CELL VOLUME 90 fl (80.0-100.0); MEAN CORPUSCULAR HEMOGLOBIN 32 pg (27-31); MEAN CORPUSCULAR HGB CONC 35 g/dl (33.0-37.0); MEAN PLATELET VOLUME 10.3 fl (7.4-10.4); PLATELET COUNT 132 K/mm3 (130-400); RED BLOOD COUNT 4.28 M/mm3 (4.20-5.60); REDCELL DISTRIBUTION WIDTH-CV 13.2 % (11.5-14.5)
[2021-11-30 14:44] LABS: ALBUMIN 2.4 gm/dL (3.4-4.8); BILIRUBIN,TOTAL 0.9 mg/dL (0.2-1.2); CALCIUM 7.2 mg/dL (8.4-10.2); CREATININE, serum 1.28 mg/dL (0.72-1.25); PHOSPHOROUS 2.7 mg/dL (2.3-4.7); TOTAL PROTEIN 4.9 gm/dL (6.2-8.1)
[2021-11-30 14:58] LABS: TROPONIN-I 0.051 ng/mL (0.00-0.033)
[2021-11-30 15:24] LABS: BAND 5 % (0-10); LYMPHOCYTE 4 % (20.0-51.0); NEUTROPHILS 88 % (42.0-75.2); PLATELET ESTIMATE NORMAL (NORMAL)
[2021-11-30 16:00] VITALS: BP 112/67; PULSE 55; TEMP 97.7
[2021-11-30 19:10] VITALS: BP 125/67; PULSE 86; TEMP 97.7
[2021-11-30 20:42] LABS: CALCIUM 7.4 mg/dL (8.4-10.2); CREATININE, serum 1.32 mg/dL (0.72-1.25); POTASSIUM 3.9 mmol/L (3.5-4.5)
--- NOTE | 2021-11-30 20:48 | NUR ---
MYLENE ALAN NOTIFIED OF CRITCAL CO2-13
--- NOTE | 2021-11-30 21:54 | NUR ---
ALERT TO SELF AND SIUTATION. BELIEVES HE IS GOING HOME IN THE MORNING. VERY PLEASENT. IV FLUIDS AND KCL INFUSING PER ORDER. COLD- WARM BLANKETS PROVIDED. BED ALARM ON . NEURO INTACT. CALL LIGHT WI REACH.
[2021-12-01 00:03] VITALS: BP 124/55; PULSE 64; TEMP 97.2
[2021-12-01 03:51] VITALS: BP 11/74; PULSE 87; TEMP 97.8
[2021-12-01 06:22] LABS: BASO % 0.1 % (0.0-2.0); EOS # 0.1 K/mm3 (0.0-0.7); EOS % 0.9 % (0.0-4.0); GRAN # 12.4 K/mm3 (1.4-6.5); GRAN % 88.5 % (42.2-75.2); HEMOGLOBIN 12.6 g/dl (13.5-18.0); LYMPH # 0.8 K/mm3 (1.2-3.4); LYMPH % 5.9 % (20.0-51.0); MEAN CELL VOLUME 91 fl (80.0-100.0); MEAN CORPUSCULAR HEMOGLOBIN 31 pg (27-31); MEAN CORPUSCULAR HGB CONC 34 g/dl (33.0-37.0); MONO # 0.6 K/mm3 (0.1-0.6); PLATELET COUNT 127 K/mm3 (130-400); RED BLOOD COUNT 4.02 M/mm3 (4.20-5.60); REDCELL DISTRIBUTION WIDTH-CV 13.3 % (11.5-14.5)
[2021-12-01 06:33] LABS: CALCIUM 7.1 mg/dL (8.4-10.2); CREATININE, serum 1.2 mg/dL (0.72-1.25)
[2021-12-01 06:34] LABS: HEMATOCRIT 36.6 % (42.0-52.0)
[2021-12-01 06:35] LABS: TROPONIN-I 0.042 ng/mL (0.00-0.033)
[2021-12-01 07:35] VITALS: BP 128/83; PULSE 91; TEMP 97.6
--- NOTE | 2021-12-01 07:56 | NUR ---
CRITICAL TROPONIN REPORTED TO JAGUAR ALAN. NO NEW ORDERS AT THIS TIME
--- NOTE | 2021-12-01 10:11 | NUR ---
PATIENT ALERT AND ORIENTED X2. PATIENT DISPLAYED INTERMITTENT CONFUSION. PATIENT IS WEAK, DID NOT EAT BREAKFAST, AND DENIED MORNING HYGIENE. MORNING MEDICATIONS GIVEN. PATIENT DENIES ANY PAIN AT THIS TIME. PATIENT'S NEURO ASSESSMENT WAS WNL. PATIENT WAS INCONTINENT OF AN EXCESSIVE AMOUNT OF URINE. PATIENT WAS ABLE TO GET TO THE BATHROOM WITH ONE ASSIST. PATIENT'S GAIT WAS WEAK, BUT STEADY. THERAPY ARRIVED AND RETURNED PATIENT BACK TO BED.
[2021-12-01 11:21] VITALS: BP 121/77; PULSE 64; TEMP 97.6
[2021-12-01 11:38] LABS: MAGNESIUM 1.4 mg/dL (1.6-2.6); PHOSPHOROUS 1.4 mg/dL (2.3-4.7)
--- NOTE | 2021-12-01 13:55 | NUR ---
The patient has been having altered mental status and hallucinations. DILLON contacted the patient's , Michelle (h.ph#[phone]/c.ph#[phone]), to discuss discharge plan. The patient lives in [place] with his . Michelle reports that the patient was independent with ADLs, up until four days ago. She reports that she has been helping him since then. He has a cane. The patient's PCP is Dr. Ricky Herrera and he [facility]. The patient does not have a DPOA-HC, but Michelle reports that she believes he has one completed and that she is his DPOA-HC. OT is recommending home with home health. SW informed the Michelle of this. Michelle reports that she is okay with the patient coming home if he doing better. DILLON then discussed the option of SNF. Michelle reports that she would prefer to pursue SNF first and she chose 1) [facility] 2) [facility]. DILLON informed Michelle how [facility] has been full lately and has a waiting list. Michelle verbalized understanding. DILLON contacted Blu at [facility]. Blu confirms that they have a quite a waiting list, but that SW could go ahead and send the referral. DILLON contacted and faxed a referral to Sara at [facility]. Sara reports that as of right now, they would be able to accept the patient, due to him being started on TPN while here. She reports that they can re-review him, once the patient is stable off of TPN and closer to discharge. SW to continue to follow. *Discharge plan: SNF. No acceptance yet. A SNF will not be able to take when still on TPN*
--- NOTE | 2021-12-01 15:45 | NUR ---
laboratory phlebotomist orders canceled. miscommunication & orders placement on wrong patient. orders were questioned. laboratory phlebotomist did attempt to take patient, but orders were then clarified.
[2021-12-01 15:54] VITALS: BP 110/70; PULSE 73; TEMP 97.5
--- NOTE | 2021-12-01 16:30 | NUR ---
Patient assisted back from the bathroom. Patient provided with new dressing to his coccyx. Stage 2 pressure ulcer noted. offered 2 turn patient to his side, but did not want to at this time. He was going to try to work on his dinner. His visited this afternoon & was able to speak with Annemarie Chadwick.
--- NOTE | 2021-12-01 19:07 | NUR ---
PATIENT APPEARS TO HAVE OCCASIONAL INTERMITTENT CONFUSION. PATIENT'S VISITED FOR A SHORT TIME DURING SHIFT. PATIENT REFUSED MOST OF HIS FOOD FOR THE DAY WITH VERY LITTLE APPETITE. PATIENT WAS STARTED ON TPN AT 1730. ELECTROLYTES REPLACED PER ORDERS. PATIENT RESTING IN BED WITH CALL LIGHT NEAR.
[2021-12-01 20:25] VITALS: BP 137/70; PULSE 60; TEMP 97.8
[2021-12-02] VITALS (7 sets, daily range): BP systolic 90–140; BP diastolic 57–81; PULSE 68–95; TEMP 97.5–98.4
[2021-12-02 05:49] LABS: BASO % 0.1 % (0.0-2.0); EOS # 0.2 K/mm3 (0.0-0.7); EOS % 1.7 % (0.0-4.0); GRAN # 12.6 K/mm3 (1.4-6.5); GRAN % 89.9 % (42.2-75.2); LYMPH # 0.5 K/mm3 (1.2-3.4); LYMPH % 3.7 % (20.0-51.0); MEAN CELL VOLUME 93 fl (80.0-100.0); MEAN CORPUSCULAR HEMOGLOBIN 32 pg (27-31); MEAN CORPUSCULAR HGB CONC 34 g/dl (33.0-37.0); MEAN PLATELET VOLUME 10.6 fl (7.4-10.4); MONO # 0.5 K/mm3 (0.1-0.6); MONO % 3.9 % (1.7-9.3); PLATELET COUNT 94 K/mm3 (130-400); REDCELL DISTRIBUTION WIDTH-CV 13.6 % (11.5-14.5)
[2021-12-02 05:56] LABS: HEMATOCRIT 35.2 % (42.0-52.0)
--- NOTE | 2021-12-02 06:18 | NUR ---
PT RESTING QUIETLY IN BED, STATES THAT HE IS HAVING A BAD MORNING, STATES THAT HE FEELS FLAT, IS UNABLE TO ELABORATE. PT SPEAKS QUIETLY ET OFTEN MAKES STATEMENTS THAT DO NOT MAKE SENSE. PT HAS BEEN SEEN TURNING ET REPOSITIONING SELF FREQUENTLY DURING NIGHT. PT REFUSES TO USE BR @ THIS TIME, STATES THAT HE WILL GO LATER. BED ALARM IS ON. PT REQUESTS "FROZEN COKE", IS AGREEABLE TO HAVING A PEPSI INSTEAD. TPN IS TURNED OFF FOR 10 MINUTES ET FLUSHED, THEN BLOOD IS DRAWN FROM PICC LINE FOR LABS, TPN RESUMED. PT DENIES PAIN OR OTHER NEEDS. CALL LIGHT WITHIN REACH.
[2021-12-02 06:35] LABS: CALCIUM 7.2 mg/dL (8.4-10.2); CREATININE, serum 1.19 mg/dL (0.72-1.25); MAGNESIUM 1.8 mg/dL (1.6-2.6); PHOSPHOROUS 2.1 mg/dL (2.3-4.7); POTASSIUM 3.8 mmol/L (3.5-4.5)
--- NOTE | 2021-12-02 09:43 | NUR ---
Initial visit; Patient stated he was glad to see his friend, the Copier Field Service Technician whom he has known for many years. 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 Copier Field Service Technician listened and offered a [place] and will keep Chandler in her prayers.
--- NOTE | 2021-12-02 10:10 | NUR ---
PATIENT ALERT BUT CONFUSED. PATIENT WAS WORKING ON BREAKFAST UPON ENTERING ROOM. PATIENT WENT DOWN FOR AN ABDOMINAL CT. MORNING MEDICATIONS GIVEN. PATIENT NEEDED CONSTANT REMINDERS TO FINISH MEDICATIONS AND POTASSIUM DRINK. PATIENT MADE SEVERAL COMMENTS DURING MORNING ASSESSMENT THAT WERE ABNORMAL. PATIENT HAD A DRESSING ON A WOUND NEAR HIS COCCYX AREA, BUT DID NOT VISUALLY SEE THE WOUND. PATIENT STATES IT WAS PRESENT AND HAD BEEN HEALING. PATIENT RESTING IN BED WITH CALL LIGHT NEAR.
[2021-12-02 11:24] LABS: COLLECTION METHOD CLEAN CATCH
--- NOTE | 2021-12-02 11:27 | NUR ---
Call made to patient's . She is unable to visit today but stated the patient wouldn't want to be hooked up to a machine. I asked her to clarify and she stated no ventilator and probably not chest compression/CPR if he had to also be ventilated. I discussed that with her. She also stated that she is wanting to hear from the doctor if anything is wrong with his GI tract that is making him not want to eat. Dr. Aaron stated he would call her and discuss any findings later today. Michelle stated that if nothing is wrong then she is ready to have the discussion about hospice/comfort care. Met with patient at bedside. He would allow me to talk and only respond with "I understand" or "I don't know", when pressured to answer questions or directly asked about how he wants his health or end-of-life to go, he stated he doesn't really want discuss it right now. I told him I plan to talk with him and his in person tomorrow when she plans to visit. That way he has time to think about what the doctors have been telling him and the type of care he wants moving forward. Chandler was very non-commital about CPR, stating "Well, I'm old." Attempted to discuss what CPR would be and he again answered with "I don't know" so I told him we could discuss that at a later time as well.
[2021-12-02 11:29] LABS: PH 7 (5-8); SQUAMOUS EPITHELIAL 0-2 /hpf (0-10); URINE APPEARANCE Clear (CLEAR/HAZY); URINE BACTERIA None Seen /hpf (NONE SEEN); URINE BILIRUBIN Negative (NEGATIVE); URINE BLOOD Negative (NEGATIVE); URINE COLOR Yellow (YELLOW); URINE GLUCOSE 2+ (NEGATIVE); URINE KETONE Negative (NEGATIVE); URINE LEUKOCYTE ESTERASE Negative (NEGATIVE); URINE NITRATE Negative (NEGATIVE); URINE PROTEIN(semi-quant) 1+ (NEGATIVE); URINE RBC 0-2 /hpf (0-2); URINE UROBILINOGEN Negative (NEGATIVE)
--- NOTE | 2021-12-02 12:53 | NUR ---
Pt resting in bed upon entering. Medications given. Notified pt was more quiet this time than the past several times we have been in. Asked pt if he was okay and he just gave ok signal with his hands. Noticed pt was tearful and asked if something was wrong. Pt just stated that it sucks getting old, but guesses it is better than the alternative. Assisted him with ordering some lunch, dinner order placed as well. Call light within reach, bed alarm on
--- NOTE | 2021-12-02 14:07 | NUR ---
A palliative care consult was ordered. The patient's is unable to come in today, but plans on coming in tomorrow and meet with our palliative care RN. DILLON faxed updates to Sara at [facility].
--- NOTE | 2021-12-02 19:04 | NUR ---
PATIENT'S DEMEANOR SEEMED TO CHANGE THROUGHOUT THE DAY. PATIENT WAS TEARFUL AFTER PALLIATIVE CARE WAS DISCUSSED. PATIENT GRIMACED AND VOCALIZED PAIN WHEN MOVED TO APPLY NEW MEPILIX ON BOTTOM WHERE A STAGE 2 ULCER IS LOCATED. PATIENT DENIED NEED FOR ANYTHING TO RELIEVE PAIN. PATIENT REPOSITIONED THROUGHOUT THE DAY. PATIENT SEEMED TO GRAVITATE TO HIS LEFT SIDE. PLACED A PILLOW BETWEEN HIS KNEES TO PREVENT ANY PRESSURE ULCER. PATIENT'S APPETITE IS SIGNIFICANTLY DECREASED, BUT WILL EAT HIS FRUIT ON HIS TRAY. PATIENT IS IN BED RESTING WITH CALL LIGHT NEAR.
--- NOTE | 2021-12-02 21:30 | NUR ---
PT ASSISTED TO BSC, HAS XL FORMED BM, ASSISTED BACK TO BED. HAS MEPILEX TO COCCYX. RT PICC WITH CLINIMIX INFUSING WITHOUT PROBLEM. PT ORIENTED X3.
--- NOTE | 2021-12-02 23:50 | NUR ---
PT CALLING OUT FOR HELP, HAD RT PICC DRSG OFF AND WAS TRYING TO GET OUT OF BED. REDRESSED PICC, RE-ORIENTED TO PLACE AND TIME. BED ALARM ON. DOOR LEFT OPEN.
[2021-12-03 03:57] VITALS: BP 128/65; PULSE 79; TEMP 98.1
--- NOTE | 2021-12-03 05:00 | NUR ---
PT HAS RESTED WELL. LABS OBTAINED FROM RT PICC WITHOUT PROBLEM. DENIES PAIN, HAS TURNED SELF SIDE TO SIDE IN BED. CLINIMIX CONTINUES PER PURPLE LUMEN.
[2021-12-03 06:26] LABS: CALCIUM 7.2 mg/dL (8.4-10.2); CREATININE, serum 1.09 mg/dL (0.72-1.25); MAGNESIUM 1.9 mg/dL (1.6-2.6); PHOSPHOROUS 2.3 mg/dL (2.3-4.7); POTASSIUM 3.4 mmol/L (3.5-4.5)
[2021-12-03 08:42] VITALS: BP 136/59; PULSE 91; TEMP 98.9
--- NOTE | 2021-12-03 09:00 | NUR ---
Pt resting in bed upon entering room. Pt was easy to wake, but did start to fall back asleep. Pt states that he is not having any pain at this time. Pt was resting on his right side. Lungs are very coarse and pt has several markings throughout his body, red/bruising in color. Pt was incontinent of stool. Cleaned pt up, mepilex removed, stage 2 on coccyx. Assisted pt in to the restroom with walker and one assist. Breakfast ordered for pt
--- NOTE | 2021-12-03 10:00 | NUR ---
Pt currently sitting up in the chair eating breakfast
--- NOTE | 2021-12-03 10:41 | NUR ---
Met with patient as he was sitting up in recliner. He had no recollection of our conversation yesterday and was unable to answer any of my questions. Discussed with him junior this will be in this afternoon and we plan to have a serious conversation about his care moving forward and even code status. He replied, "Okay."
[2021-12-03 11:32] VITALS: BP 109/69; PULSE 100; TEMP 97.6
--- NOTE | 2021-12-03 14:00 | NUR ---
PICC intact right upper arm. tegaderm present. no disk present. 1/2 of stat lock not present. sterile PICC dressing change done with insertion site cleansed with chloraprep x 1, chlorahexidine impregnated disk applied, skin prep, stat lock, and tegaderm applied. no signs or symptoms of IV complications noted. no concerns voiced. re-wrapped with an kristofer to protect catheter.
--- NOTE | 2021-12-03 14:04 | NUR ---
Met with patient's , Michelle, at bedside. We discussed options about care moving forward. Michelle states she is not comfortable taking him home and feels he has lost his will to live. She is okay with SNF or LTC, whichever he qualifies for. Michelle had a conversation with Dr. Aaron yesterday and after that discussion she feels comfortable giving the patient through the weekend to see how he does but then moving towards discharge and the next step. When discussing DNR/DNI, she stated she would also give him the weekend until deciding that. I then discussed the case with the SW and hospitalist team and told Michelle that I would touch base with her Monday about how things went and if she is okay moving forward with DNR/DNI and discharge to a nursing facility.
--- NOTE | 2021-12-03 14:15 | NUR ---
Dominique, palliative care RN, met with the patient and his . His , Michelle would like to see how the patient does through the weekend and make a final decision on Monday. Michelle is looking at the patient going to a SNF or LTC. DILLON met with the patient and Michelle to update on referrals and how a facility will not be able to take the patient on TPN. Michelle verbalized understanding. Michelle is interested in SW also sending a referral to [facility] and [facility]. DILLON contacted Milvia at [facility] and she confirms that they are declining the patient. DILLON contacted and faxed a referral to [facility] and [facility]. DILLON faxed updates to [facility].
[2021-12-03 15:46] VITALS: BP 112/56; PULSE 85; TEMP 97.5
--- NOTE | 2021-12-03 16:00 | NUR ---
Pt continues to rest with eyes closed. Pts was here some of the afternoon, but just leaving as pt is sleeping.
--- NOTE | 2021-12-03 17:57 | NUR ---
Pt only ate small amount of his dinner. He did eat some ice cream. Evening medications given and pt repositioned. Pt does often reposition himself. Attempt to put a pillow between his knees when he is on his side, but pt refuses. Call light within reach
[2021-12-03 19:43] VITALS: BP 102/67; PULSE 69; TEMP 98
--- NOTE | 2021-12-03 19:53 | NUR ---
PT REFUSED TREATMENT AT THIS TIME
--- NOTE | 2021-12-03 20:00 | NUR ---
PT IN BED, IS ALERT TO SELF AND LOCATION, NOT SURE OF MONTH OR TIME OF DAY. OFFERED TO SHAVE PT, HE DECLINED. HAS CLINIMIX AND LIPIDS INFUSING TO RT PICC. MEPILEX INTACT TO COCCYX, WEARING A BRIEF. POOR ORAL INTAKE, DOES ENJOY COKE OR PEPSI.
--- NOTE | 2021-12-04 00:05 | NUR ---
PT ASSISTED TO BATHROOM, HAS SMALL STOOL AND VOIDS. BACK TO BED WITH ONE ASSIST. BED ALARM ON.
[2021-12-04 00:28] VITALS: BP 105/57; PULSE 56; TEMP 97.8
[2021-12-04 04:27] VITALS: BP 126/50; PULSE 89; TEMP 97.8
--- NOTE | 2021-12-04 05:55 | NUR ---
LABS OBTAINED FROM RT PICC. PT DENIES NEEDS. TAKES SCHEDULED AM MED WITHOUT PROBLEM.
[2021-12-04 06:33] LABS: BASO % 0.1 % (0.0-2.0); EOS # 0.3 K/mm3 (0.0-0.7); GRAN # 12.8 K/mm3 (1.4-6.5); GRAN % 89.6 % (42.2-75.2); HEMOGLOBIN 11.3 g/dl (13.5-18.0); LYMPH # 0.6 K/mm3 (1.2-3.4); LYMPH % 3.8 % (20.0-51.0); MEAN CELL VOLUME 93 fl (80.0-100.0); MEAN CORPUSCULAR HEMOGLOBIN 32 pg (27-31); MEAN CORPUSCULAR HGB CONC 34 g/dl (33.0-37.0); MEAN PLATELET VOLUME 11.6 fl (7.4-10.4); MONO # 0.6 K/mm3 (0.1-0.6); PLATELET COUNT 95 K/mm3 (130-400); RED BLOOD COUNT 3.59 M/mm3 (4.20-5.60); REDCELL DISTRIBUTION WIDTH-CV 13.8 % (11.5-14.5)
[2021-12-04 06:36] LABS: HEMATOCRIT 33.3 % (42.0-52.0)
[2021-12-04 06:57] LABS: CALCIUM 7.2 mg/dL (8.4-10.2); CREATININE, serum 1.07 mg/dL (0.72-1.25); MAGNESIUM 1.9 mg/dL (1.6-2.6); POTASSIUM 4.1 mmol/L (3.5-4.5)
[2021-12-04 07:58] VITALS: BP 124/39; PULSE 67; TEMP 97.8
[2021-12-04 12:22] VITALS: BP 120/59; PULSE 72; TEMP 97.9
[2021-12-04 15:21] VITALS: BP 116/58; PULSE 77; TEMP 97.7
[2021-12-04 19:59] VITALS: BP 118/71; PULSE 76; TEMP 98.1
--- NOTE | 2021-12-04 20:00 | NUR ---
PT IN BED. IS ALERT, ORIENTED TO SELF AND PLACE, UNSURE OF TIME OF DAY, COULD NOT REMEMBER WHAT HE HAD FOR DINNER, STATED "IT WAS A YEIMI MEAL". DID REPORT HIS DAUGHTER VISITED. HAS RT PICC WITH CLINIMIX AND LIPIDS INFUSING WITHOUT PROBLEM. DENIES PAIN. REPLACED MEPILEX TO COCCYX, HAS 2 SMALL OPEN AREAS NOTED. HAS HAD ONE LOOSE STOOL.
--- NOTE | 2021-12-04 21:00 | NUR ---
COFFEE PROVIDED PER PT REQUEST.
[2021-12-05] VITALS (8 sets, daily range): BP systolic 90–131; BP diastolic 37–70; PULSE 67–83; TEMP 97.2–98.7
--- NOTE | 2021-12-05 05:09 | NUR ---
ASSISTED BACK FROM BATHROOM, HAS SMALL LOOSE BROWN STOOL AND VOIDS. LABS DRAWN FROM PICC LINE.
[2021-12-05 06:39] LABS: BASO % 0.2 % (0.0-2.0); EOS # 0.3 K/mm3 (0.0-0.7); EOS % 2.5 % (0.0-4.0); GRAN % 87.1 % (42.2-75.2); HEMOGLOBIN 11.6 g/dl (13.5-18.0); LYMPH # 0.7 K/mm3 (1.2-3.4); LYMPH % 5.4 % (20.0-51.0); MEAN CELL VOLUME 93 fl (80.0-100.0); MEAN CORPUSCULAR HEMOGLOBIN 32 pg (27-31); MEAN CORPUSCULAR HGB CONC 34 g/dl (33.0-37.0); MEAN PLATELET VOLUME 11.9 fl (7.4-10.4); MONO # 0.6 K/mm3 (0.1-0.6); MONO % 4.4 % (1.7-9.3); PLATELET COUNT 92 K/mm3 (130-400); RED BLOOD COUNT 3.68 M/mm3 (4.20-5.60); REDCELL DISTRIBUTION WIDTH-CV 13.8 % (11.5-14.5)
[2021-12-05 06:48] LABS: HEMATOCRIT 34.3 % (42.0-52.0)
[2021-12-05 06:56] LABS: CALCIUM 7.5 mg/dL (8.4-10.2); CREATININE, serum 1.06 mg/dL (0.72-1.25); MAGNESIUM 1.9 mg/dL (1.6-2.6); PHOSPHOROUS 2.5 mg/dL (2.3-4.7); POTASSIUM 4.4 mmol/L (3.5-4.5)
--- NOTE | 2021-12-05 09:15 | NUR ---
PATIENT SITTING UP IN BED FINISHING BREAKFAST UPON ARRIVAL. PATIENT HERE FOR ALTERED MENTAL STATUS. PATIENT FINISHED MORE THAN 70 PERCENT OF BREAKFAST. MORNING MEDICATIONS GIVEN. PATIENT APPEARS TO BE IN A POSITIVE MOOD. PATIENT DENIES ANY PAIN AT THIS TIME. WILL CONTINUE TO MONITOR. PATIENT IS RESTING IN BED WITH CALL LIGHT WITHIN REACH.
--- NOTE | 2021-12-05 10:04 | NUR ---
PERFORMED DRESSING CHANGE ON PATIENT'S STAGE 2 PRESSURE ULCER IN HIS COCCYX AREA. TWO AREAS ARE OPENED WITH NO CHANGES FROM LAST DRESSING. WILL CONTINUE TO MONITOR.
--- NOTE | 2021-12-05 12:31 | NUR ---
AGREE WITH DULCE ACHARYA'S ASSESSMENTST THIS SHIFT.
--- NOTE | 2021-12-05 20:00 | NUR ---
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 Assessment complete. A&O to self and place. Denies pain/nausea. Short of breath with activity. Tele reporting SR. Up to bathroom at this time-stand by assist. Had a large loose stool and voided without difficulty. Noted to have a stage 2 ulcer to coccyx-mepilex on-CDI. Neuros WNL. PICC to right upper arm flushes well-good blood return-lipids infusing@21ml/hr/Calcium gluconate@32ml/hr. Plan of care discussed for this shift to include meds/calling for questions/concerns. Verbalizes understanding/denies needs. Call light in reach. Will monitor.
--- NOTE | 2021-12-05 20:00 | NUR ---
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 Assessment complete. A&Ox4. Denies pain/nausea. Short of breath with activity. Tele reporting SR. Up to bathroom at this time-stand by assist. Had a large loose stool and voided without difficulty. Noted to have a stage 2 ulcer to coccyx-mepilex on-CDI. Neuros WNL. PICC to right upper arm flushes well-good blood return-lipids infusing@21ml/hr/Calcium gluconate@32ml/hr. Plan of care discussed for this shift to include meds/calling for questions/concerns. Verbalizes understanding/denies needs. Call light in reach. Will monitor.
--- NOTE | 2021-12-06 00:33 | NUR ---
Resting in bed eyes closed. NO s/s of pain noted. Will monitor.
[2021-12-06 04:18] VITALS: BP 108/56; PULSE 69; TEMP 98.3
--- NOTE | 2021-12-06 05:30 | NUR ---
Rested well this shift. Denied pain/nausea/shortness of breath. VS remain stable. Up to bathroom to void/stool with stand by assist. A&O to person and place. Tele reports SDYS. PICC to right upper arm flushes well-good blood return. Stage II at coccyx with mepilex-CDI. Denies current needs. Call light in reach. Will monitor.
--- NOTE | 2021-12-06 06:19 | NUR ---
Up to commode at this time. Incontinent of a small amount of bowel. Voided without difficulty.
[2021-12-06 07:21] VITALS: BP 139/65; PULSE 67; TEMP 98.2
[2021-12-06 07:29] LABS: CALCIUM 7.4 mg/dL (8.4-10.2); CREATININE, serum 1.16 mg/dL (0.72-1.25); MAGNESIUM 1.9 mg/dL (1.6-2.6); PHOSPHOROUS 2.7 mg/dL (2.3-4.7); POTASSIUM 4.2 mmol/L (3.5-4.5)
[2021-12-06 10:50] VITALS: BP 158/82; PULSE 69; TEMP 98.5
--- NOTE | 2021-12-06 11:24 | NUR ---
PATIENT ALERT AND ORIENTED X2. PATIENT HAS INTERMITTENT CONFUSION, LIKELY RELATED TO DEMENTIA. PATIENT HAS INCREASED APPETITE, FINISHED MOST OF HIS BREAKFAST. LUNGS CTA. BOWEL SOUNDS AUDIBLE. COCCYX HAS TWO AREAS WITH STAGE TWO PRESSURE ULCERS APPROIMATELY 2 MM IN SIZE. MEPILIX COVERING WOUND. PATIENT HAS SOME REDDENED AREAS ON HIS SHINS AND ANKLES FROM CONSTANT PRESSURE FROM CROSSING HIS LEGS. PLACED A PILLOW BETWEEN LEGS TO ALLEVIATE THAT. MORNING MEDICATIONS GIVEN. PATIENT DENIES PAIN AT THIS TIME. PATIENT, FAMILY, AND TEAM ARE SET TO HAVE A GOAL MEETING TODAY TO DISCUSS FUTURE PLACEMENT.
--- NOTE | 2021-12-06 12:56 | NUR ---
Nurys, child care associate, notified SW that they are stopping TPN on the patient today. SW notified and faxed updates to [facility], and [facility]. Awaiting screens.
--- NOTE | 2021-12-06 14:03 | NUR ---
The patient's presented the ALPINE GUIDE with the patient's DPOA-HC and Living Will. SW placed the document in the patient's chart. The patient's DPOA-HC is his , Michelle. The alternate is Callie Kaur (ph#[phone]).
--- NOTE | 2021-12-06 15:07 | NUR ---
Follow-up visit; Patient and his thanked Bulk Sausage Casing Tier Off for looking in on him and later his talked with Bul[employer] S[employer] C[employer] Tier Off at length. Patient thanked Bul[employer] S[employer] Casing Tier Off for being there for him.
[2021-12-06 15:53] VITALS: BP 129/62; PULSE 77; TEMP 98.2
--- NOTE | 2021-12-06 19:13 | NUR ---
PATIENT'S TPN DC'D. PATIENT AND FAMILY HAD A MEETING FOR GOALS AND CARE TODAY. PATIENT'S SON AND WERE AT THE MEETING WITH CHRISTIANO. PATIENT'S DEMEANOR SEEMED TO CHANGE AROUND THAT TIME. PATIENT AMBULATED WITH THERAPY TODAY. PATIENT'S APPETITE DECREASED AROUND DINNER TIME. PATIENT DENIED ANY HYGIENE TODAY AND URINATED ONCE DURING SHIFT. MULTIPLE ATTEMPTS TO INCREASE HIS FLUID INTAKE, PATIENT DENIED THOSE. PATIENT IS RESTING IN BED WITH CALL LIGHT WITHIN REACH.
[2021-12-06 20:07] VITALS: BP 121/61; PULSE 75; TEMP 98.4
--- NOTE | 2021-12-06 21:46 | NUR ---
PT ASSISTED TO BATHROOM, HAS MOD SOFT BM AND VOIDS 400CC OF YELLOW URINE. BACK TO BED WITH WALKER AND ONE ASSIST. STAGE II ULCER X2 TO COCCYX, MEPILEX REPLACED. HS MEDS GIVEN, INCLUDING NEW MED REMERON 7.5MG PO. SHAVE GIVEN. PT ON AIR MATTRESS AND IS REPOSITIONING SELF SIDE TO SIDE. PICC TO RT UPPER ARM, FLUSHES WELL WITH GOOD BLOOD RETURN. PT ORIENTED X3. BED ALARM ON.
[2021-12-07 00:45] VITALS: BP 120/68; PULSE 85; TEMP 98.3
[2021-12-07 04:34] VITALS: BP 138/61; PULSE 67; TEMP 98.5
--- NOTE | 2021-12-07 05:00 | NUR ---
TAKES COKE WITH ICE. NIBBLES ON JUNK FOOD AT BEDSIDE. RT PICC INTACT, LABS OBTAINED.
[2021-12-07 06:54] LABS: BASO % 0.3 % (0.0-2.0); EOS # 0.3 K/mm3 (0.0-0.7); EOS % 2.8 % (0.0-4.0); GRAN # 8.4 K/mm3 (1.4-6.5); GRAN % 84.5 % (42.2-75.2); HEMOGLOBIN 10.8 g/dl (13.5-18.0); LYMPH # 0.6 K/mm3 (1.2-3.4); LYMPH % 6.5 % (20.0-51.0); MEAN CELL VOLUME 94 fl (80.0-100.0); MEAN CORPUSCULAR HEMOGLOBIN 31 pg (27-31); MEAN CORPUSCULAR HGB CONC 33 g/dl (33.0-37.0); MEAN PLATELET VOLUME 11.3 fl (7.4-10.4); MONO # 0.5 K/mm3 (0.1-0.6); MONO % 5.5 % (1.7-9.3); PLATELET COUNT 89 K/mm3 (130-400); RED BLOOD COUNT 3.48 M/mm3 (4.20-5.60); REDCELL DISTRIBUTION WIDTH-CV 14.1 % (11.5-14.5)
[2021-12-07 07:02] LABS: HEMATOCRIT 32.8 % (42.0-52.0)
[2021-12-07 07:05] LABS: CALCIUM 7.5 mg/dL (8.4-10.2); CREATININE, serum 1.23 mg/dL (0.72-1.25); POTASSIUM 4.3 mmol/L (3.5-4.5)
[2021-12-07 08:00] VITALS: BP 126/64; PULSE 76; TEMP 97.4
--- NOTE | 2021-12-07 10:58 | NUR ---
Follow-up visit; Patient and his brother thanked Clinical Lab Clerk for stopping and visiting. Chandler is doing a little better and is eating a little. Clinical Lab Clerk wished him well.
[2021-12-07 15:28] VITALS: PULSE 87; TEMP 98.2
--- NOTE | 2021-12-07 15:31 | NUR ---
Received report. Patient up to bathroom upon arrival. Patient was able to ambulate to bathroom and urinate. Patient had a small formed bowel movement. Mepilix dressing changed on stage two ulcer on coccyx. Patient alert but partially oriented. Lungs CTA. Bowel sounds present. Patient placed in bed with pillow between legs to reduce pressure ulcer. Patient denies pain at this time. Call light within reach.
--- NOTE | 2021-12-07 15:34 | NUR ---
The clinical team is ready to discharge the patient. TPN has been stopped. DILLON notified and faxed updates to [facility] and [facility]. Awaiting acceptance. Minnie, at [facility], reports that they are not taking any admissions right now. DILLON contacted and updated the patient's , Michelle. Michelle is in agreement to SNF at either facility.
--- NOTE | 2021-12-07 16:06 | NUR ---
Sara, at [facility], reports that they are able to accept the patient for a skilled stay tomorrow. SW notified the patient's , Michelle. Michelle is in agreement with the patient going to [facility]. SW read the IM form outloud to Michelle over the phone. Michelle verbalized understanding and gave SW approval to sign the form on her behalf. *Discharge plan: [facility] SNF*
--- NOTE | 2021-12-07 18:33 | NUR ---
Patient ate better today. Patient's family had brought him candy and drinks today. Patient unable to void and denied the need to go. Will bladder scan. Patient has had no complaints of pain, has rested off and on throughout the day.
--- NOTE | 2021-12-07 18:52 | NUR ---
PATIENT WAS ABLE TO VOID. WHEN ASKED IF HE NEEDED TO USE THE RESTROOM, PATIENT DENIED THE NEED. BLADDER SCAN REVEALED MORE THAN 372ML OF URINE. WHEN APPROACHED ABOUT GOING TO THE BATHROOM THE PATIENT STOOD UP, PULLED HIS BRIEF DOWN AND SAT BACK DOWN ON THE BED. PATIENT WAS REMINDED THAT HE NEEDED TO WALK TO THE BATHROOM. PATIENT AMBULATED, BUT WAS SLIGHTLY UNSTEADY ON HIS FEET. PATIENT WAS ABLE TO VOID APPROXIMATELY 400ML AND HAD A MEDIUM BOWEL MOVEMENT. PATIENT RETURNED TO BED AND IS RESTING WITH CALL LIGHT NEAR.
[2021-12-07 20:35] VITALS: BP 127/74; PULSE 86; TEMP 99.2
--- NOTE | 2021-12-07 22:30 | NUR ---
PT IS ASSISTED INTO BR WITH SBA ET WALKER. GAIT IS STEADY. PT IS CONFUSED, ASKS WHERE WE ARE AT ET IF HIS IS AWAKE. PT RE-ORIENTED THAT WE ARE AT THE HOSPITAL ET THAT HIS IS NOT HERE. PT IS ONLY ABLE TO CORRECTLY TELL THE YEAR ET HIS OWN . PT ASSISTED BACK INTO BED AFTER URINATING ET HAVING A MEDIUM BM. PT BECOMES SOB WITH ACTIVITY. PT DRINKS CHOCOLATE SHAKE @ BEDSIDE, DENIES OTHER NEEDS, TURNS SELF IN BED ONTO LEFT SIDE. BED ALARM ON, CALL LIGHT WITHIN REACH.
[2021-12-07 23:57] VITALS: BP 117/78; PULSE 67; TEMP 97.7
[2021-12-08 04:05] VITALS: BP 131/82; PULSE 72; TEMP 97.6
--- NOTE | 2021-12-08 05:16 | NUR ---
PT AWAKENED TO DRAW BLOOD FOR LABS FROM PICC LINE. PT IS PLEASANT THIS MORNING, STATES THAT HE SLEPT WELL ET THAT ALL HE WANTS TO DO ANYMORE IS LAY AROUND. PT DENIES OTHER NEEDS. BED ALARM ON, CALL LIGHT WITHIN REACH.
[2021-12-08 06:54] LABS: BASO % 0.1 % (0.0-2.0); EOS # 0.2 K/mm3 (0.0-0.7); EOS % 2.7 % (0.0-4.0); GRAN # 6.8 K/mm3 (1.4-6.5); GRAN % 83.9 % (42.2-75.2); HEMOGLOBIN 11.1 g/dl (13.5-18.0); LYMPH # 0.6 K/mm3 (1.2-3.4); LYMPH % 6.8 % (20.0-51.0); MEAN CELL VOLUME 96 fl (80.0-100.0); MEAN CORPUSCULAR HEMOGLOBIN 33 pg (27-31); MEAN CORPUSCULAR HGB CONC 34 g/dl (33.0-37.0); MEAN PLATELET VOLUME 11.5 fl (7.4-10.4); MONO # 0.5 K/mm3 (0.1-0.6); PLATELET COUNT 104 K/mm3 (130-400); REDCELL DISTRIBUTION WIDTH-CV 14.2 % (11.5-14.5)
[2021-12-08 06:55] LABS: HEMATOCRIT 32.7 % (42.0-52.0)
[2021-12-08 07:11] LABS: ALBUMIN 1.8 gm/dL (3.4-4.8); BILIRUBIN,TOTAL 0.4 mg/dL (0.2-1.2); CREATININE, serum 1.45 mg/dL (0.72-1.25); MAGNESIUM 1.5 mg/dL (1.6-2.6); PHOSPHOROUS 3.2 mg/dL (2.3-4.7); POTASSIUM 4.5 mmol/L (3.5-4.5); TOTAL PROTEIN 4.9 gm/dL (6.2-8.1)
[2021-12-08 07:17] VITALS: BP 146/77; PULSE 77; TEMP 97.7
--- NOTE | 2021-12-08 09:00 | NUR ---
Pt resting in bed at this time. He has had breakfast and did eat most of it. Pt is drowsy and states he feels tired today. Updated pt that he will most likely be going to [facility] today. Pt acts as if he was aware although he is not able to discuss specific details. Pt continues to be confused, but does start to carry a conversation, but again nothing in detail.
[2021-12-08] MEDS ORDERED: EFFIENT5 MG PO (10:13)
[2021-12-08] MEDS ORDERED: MIRTAZAPINE7.5 MG PO (10:14)
[2021-12-08] MEDS ORDERED: PHOSPHA 250 NEU1 TAB PO (10:14)
[2021-12-08] MEDS ORDERED: MAG-OX 400400 MG/TAB PO (10:15)
[2021-12-08] MEDS ORDERED: MEGACE ORAL40 MG/ML PO (10:18)
[2021-12-08] MEDS ORDERED: NOVOLOG 100U100 U/M1 SQ (10:19)
--- NOTE | 2021-12-08 10:23 | NUR ---
Follow-up; Patient resting, Surgical Appliance Fitter left a prayer card, [facility].
--- NOTE | 2021-12-08 10:47 | NUR ---
Ghulam, at [facility], reports that they are able to accept the patient for services. The patient is to discharge today, 12/08, to [facility] for a skilled stay. Transportation was scheduled at 1300, via [facility]. DILLON informed the patient's RN and his , Michelle, of the time. No additional needs at this time.
[2021-12-08 11:06] VITALS: BP 156/90; PULSE 89; TEMP 97.5
[2021-12-08 13:11] VITALS: BP 156/90; PULSE 89; TEMP 97.5
--- NOTE | 2021-12-08 13:19 | NUR ---
Pt going to [facility]. PICC line recently removed by [facility] with [facility]. PT transferred over to wheelchair and pt left via [facility].
== END 2021-12-08 13:21 | DRG 70 ==
LOC: MEDICAL 11:38 → SURG 12:11
PROVIDERS: Physician Assistant; ADMIT Internal Medicine
PROC: 02HV33Z Insertion of Infusion Device into Superior Vena Cava, Percutaneous Approach (ICD-10-PCS; principal; 2021-11-30)
DX: G93.41 Metabolic encephalopathy (principal); E43 Unspecified severe protein-calorie malnutrition; I50.22 Chronic systolic (congestive) heart failure; I13.0 Hypertensive heart and chronic kidney disease with heart failure and stage 1 through stage 4 chronic kidney disease, or unspecified chronic kidney disease; E87.2 Acidosis; E87.0 Hyperosmolality and hypernatremia; Z68.1 Body mass index [BMI] 19.9 or less, adult; I25.10 Atherosclerotic heart disease of native coronary artery without angina pectoris; I25.5 Ischemic cardiomyopathy; N18.30 Chronic kidney disease, stage 3 unspecified; E78.5 Hyperlipidemia, unspecified; K21.9 Gastro-esophageal reflux disease without esophagitis; J43.9 Emphysema, unspecified; M10.9 Gout, unspecified; G25.81 Restless legs syndrome; G20 Parkinson's disease; E03.9 Hypothyroidism, unspecified; R44.1 Visual hallucinations; E87.6 Hypokalemia; E83.39 Other disorders of phosphorus metabolism; D72.829 Elevated white blood cell count, unspecified; T38.0X5A Adverse effect of glucocorticoids and synthetic analogues, initial encounter; R62.7 Adult failure to thrive; F32.A Depression, unspecified; E87.8 Other disorders of electrolyte and fluid balance, not elsewhere classified; E83.42 Hypomagnesemia; I48.0 Paroxysmal atrial fibrillation; L89.152 Pressure ulcer of sacral region, stage 2; Z85.51 Personal history of malignant neoplasm of bladder; Z95.5 Presence of coronary angioplasty implant and graft; Z95.810 Presence of automatic (implantable) cardiac defibrillator; Z87.891 Personal history of nicotine dependence; Z79.82 Long term (current) use of aspirin; Z79.52 Long term (current) use of systemic steroids; Z20.822 Contact with and (suspected) exposure to COVID-19
CPT/HCPCS: 99223-AI; 99232-AI; 99233-AI; 99239; C1751; C1892; J0610; J1644; J1815; J3411; J3475; J3480; J7050; J7070; Q9967

== ENCOUNTER 2021-12-11 19:28 | Emergency (ER) | payer MEDICARE, BC ==
[~2021-12-11] VITALS: Ht 172.7 cm; Wt 53.6 kg
[~2021-12-11 19:28] MED LIST changes: +EFFIENT5 MG PO; +MEGACE ORAL40 MG/ML PO; +MIRTAZAPINE7.5 MG PO; +NOVOLOG 100U100 U/M1 SQ; +PHOSPHA 250 NEU1 TAB PO
[2021-12-11 19:31] VITALS: TEMP 98.6
[2021-12-11 20:08] LABS: BASO % 0.7 % (0.0-2.0); EOS # 0.3 K/mm3 (0.0-0.7); GRAN # 4.2 K/mm3 (1.4-6.5); GRAN % 75.8 % (42.2-75.2); HEMOGLOBIN 11.8 g/dl (13.5-18.0); LYMPH # 0.5 K/mm3 (1.2-3.4); LYMPH % 9.5 % (20.0-51.0); MEAN CELL VOLUME 98 fl (80.0-100.0); MEAN CORPUSCULAR HEMOGLOBIN 32 pg (27-31); MEAN CORPUSCULAR HGB CONC 33 g/dl (33.0-37.0); MEAN PLATELET VOLUME 10.1 fl (7.4-10.4); MONO # 0.5 K/mm3 (0.1-0.6); MONO % 8.6 % (1.7-9.3); PLATELET COUNT 195 K/mm3 (130-400); RED BLOOD COUNT 3.69 M/mm3 (4.20-5.60); REDCELL DISTRIBUTION WIDTH-CV 14.2 % (11.5-14.5)
[2021-12-11 20:10] LABS: HEMATOCRIT 36.1 % (42.0-52.0)
[2021-12-11 20:17] LABS: PROTHROMBIN TIME 11.2 SECONDS (9.7-12.8)
[2021-12-11 20:22] LABS: ALBUMIN 2.1 gm/dL (3.4-4.8); BILIRUBIN,TOTAL 0.4 mg/dL (0.2-1.2); C-REACTIVE PROTEIN 3.27 mg/dL (0.00-0.50); CALCIUM 8.1 mg/dL (8.4-10.2); CREATININE, serum 1.47 mg/dL (0.72-1.25); POTASSIUM 3.9 mmol/L (3.5-4.5); TOTAL PROTEIN 5.7 gm/dL (6.2-8.1)
[2021-12-11 20:31] LABS: TROPONIN-I 0.034 ng/mL (0.00-0.033)
[2021-12-11 23:20] VITALS: BP 127/84; PULSE 86
== END 2021-12-11 23:20 | disposition home or self-care (01) ==
LOC: COL.ER 19:28
PROVIDERS: Emergency Medicine
DX: R06.00 Dyspnea, unspecified (principal); R09.02 Hypoxemia; R79.89 Other specified abnormal findings of blood chemistry; R79.0 Abnormal level of blood mineral; I25.10 Atherosclerotic heart disease of native coronary artery without angina pectoris; J44.9 Chronic obstructive pulmonary disease, unspecified; E78.5 Hyperlipidemia, unspecified; I12.9 Hypertensive chronic kidney disease with stage 1 through stage 4 chronic kidney disease, or unspecified chronic kidney disease; N18.30 Chronic kidney disease, stage 3 unspecified; Z86.16 Personal history of COVID-19; Z79.82 Long term (current) use of aspirin; Z79.899 Other long term (current) drug therapy
CPT/HCPCS: Q9967